=== PATIENT | female | born 1995 | race Caucasian/White ===

== ENCOUNTER 2023-10-21 12:06 | Emergency (ER) | payer OTHER ==
[2023-10-21 12:36] VITALS: BP 140/88; O2SAT 96
--- NOTE | 2023-10-21 12:56 | ED Physician Documentation ---
PD HPI UPPER EXT INJURY - Stated complaint Stated Complaint: RT ELBOW INJ - Chief complaint Chief Complaint: Trauma Ext - History obtained from History obtained from: Patient, Family - Additonal information Additional information: Previously healthy 28-year-old woman with no possibility of with running with her dogs and tripped and fell and landed on her right arm with moderate to severe pain from the elbow to the wrist. No other injuries. Declines pain medication on initial evaluation. PD PAST MEDICAL HISTORY - Past Medical History Past Medical History: No - Past Surgical History Past Surgical History: No - Allergies Allergies/Adverse Reactions: Allergies Allergy/AdvReac Type Severity Reaction Status Date / Time No Known Drug Allergies Allergy Verified 10/21/23 12:22 - Social History Does the pt smoke?: No Smoking Status: Never smoker Does the pt drink ETOH?: No Does the pt have substance abuse?: No - Immunizations Immunizations are current?: Yes - POLST Patient has POLST: No PD ED PE NORMAL - Vitals Vital signs reviewed: Yes - General General: Alert and oriented X 3, No acute distress - Abdomen Abdomen: Normal bowel sounds, Soft - Back Back: No CVA TTP, No spinal TTP - Derm Derm: Normal color, Warm and dry - Extremities Extremities: Other (Diffuse tenderness and swelling to the mid ulnar area as well as the carpals on the right and tender over the olecranon. Unable to extend the elbow.) - Neuro Neuro: Alert and oriented X 3, Normal speech Results - Vitals Vitals: Vital Signs - 24 hr 10/21/23 12:22 Temperature 36.5 C Heart Rate 84 Respiratory 16 Rate Blood Pressure 140/88 H O2 Saturation 96 - Rads (name of study) X-rays of the right wrist and elbow demonstrate a likely radial head fracture with joint effusion. Relevant Findings:: Final report received, EMP independent interpretation of test PD Medical Decision Making - ED course ED course: 28-year-old woman with fall and right arm injury and found to have radial head fracture and Elbow joint effusion. Placed in a sling for comfort advised on orthopedic follow-up and pain control. Departure - Departure Disposition: 01 Home, Self Care Clinical Impression: Radial head fracture, closed Qualifiers: Encounter type: initial encounter Fracture alignment: nondisplaced Laterality: right Qualified Code(s): S52.124A - Nondisplaced fracture of head of right radius, initial encounter for closed fracture Condition: Good Record reviewed to determine appropriate education?: Yes Instructions: ED Fx Radial Head Comments: Follow-up with an orthopedist within a week or 2, take the x-ray on CD with you to that appointment. Wear the sling for comfort and you can take Tylenol and/or ibuprofen for pain. Ice and gentle stretching is okay as well. Return for new or worsening symptoms. Forms: PCP List, Activity restrictions Discharge Date/Time: 10/21/23 14:37
--- NOTE | 2023-10-21 13:52 | XRAY Report ---
PROCEDURE: Wrist 4 View RT INDICATIONS: Trauma TECHNIQUE: 4 views of the wrist were acquired. COMPARISON: None. FINDINGS: Bones: No fractures or dislocations. No suspicious bony lesions. Soft tissues: No suspicious soft tissue calcifications or masses. IMPRESSION: No acute wrist fracture or dislocation. Reviewed by: Juan J Crow MD on 10/21/2023 1:51 PM [facility] Approved by: Juan J Crow MD on 10/21/2023 1:51 PM [facility] Station ID: [id number]
--- NOTE | 2023-10-21 13:53 | XRAY Report ---
PROCEDURE: Elbow 3 View RT INDICATIONS: Trauma TECHNIQUE: 3 views of the elbow were acquired. COMPARISON: None. FINDINGS: Bones: No definite acute fracture or dislocation. Subtle lucency involving anterior aspect of radial head is seen. No suspicious bony lesions. Soft tissues: Displacement of posterior and anterior fat pads are seen consistent with moderate to la rge joint effusion. No suspicious soft tissue calcifications or masses. IMPRESSION: Presence of moderate to large joint effusion suggestive of occult fracture. No definite acute fractur e is seen. Questionable radiolucency involving anterior aspect of radial head and may represent a non displaced radial head fracture. Clinical correlation and follow-up is recommended. Reviewed by: Juan J Crow MD on 10/21/2023 1:52 PM PST Approved by: Juan J Crow MD on 10/21/2023 1:52 PM PST Station ID: [id number]
== END 2023-10-21 14:37 | disposition home or self-care (01) ==
LOC: ED 12:06
DX: S52.124A Nondisplaced fracture of head of right radius, initial encounter for closed fracture (principal); W01.0XXA Fall on same level from slipping, tripping and stumbling without subsequent striking against object, initial encounter; Y93.02 Activity, running
CPT/HCPCS: 99283; 99284